=== PATIENT | male | born 1950 | race Caucasian/White ===

== ENCOUNTER 2017-01-27 06:46 | Day surgery (SDC) | payer OTHER ==
[2017-01-25 14:00] VITALS: BP 151/81
[~2017-01-27] VITALS: Ht 177.8 cm; Wt 99.8 kg
[~2017-01-27 06:46] MED LIST: BUPIVACAINE/PF 0.5% ONE; DOXY100T PO; EPINEPHRINE 1 MG/ML, 1ML ONE; IBUP200T64 PO; LIDOCAINE/PF 1%, 30ML ONE; OXYC-307 PO; TIZA4TAB9 PO; cloniDINE/PF 100 MCG/ML, 10 ML ONE; robaxin PO; tizanidine PO
[2017-01-27] MEDS ORDERED: LIDOCAINE 1%, 2ML ONE (07:16)
[2017-01-27] MEDS ORDERED: PROPOFOL 10 MG/ML, 20ML ONE (07:20)
[2017-01-27] MEDS ORDERED: ONDANSETRON 2MG/ML, 2ML ONE (07:20)
[2017-01-27] MEDS ORDERED: DEXAMETHASONE 4 MG/ML, 1ML ONE (07:20)
[2017-01-27] MEDS ORDERED: SUCCINYLCHOLINE 20 MG/ML, 10ML ONE (07:20)
[2017-01-27] MEDS ORDERED: CEFAZOLIN 1,000 MG ONE (07:20)
[2017-01-27] MEDS ORDERED: MIDAZOLAM 1 MG/ML, 2ML ONE (07:20)
[2017-01-27] MEDS ORDERED: LIDOCAINE-MPF 2% ,5ML ONE (07:20)
[2017-01-27] MEDS ORDERED: BUPIVACAINE/PF 0.5% ONE (07:20)
[2017-01-27] MEDS ORDERED: FENTANYL PF 100 MCG/2ML ONE (07:20)
[2017-01-27] MEDS ORDERED: IBUP200T48 PO (07:35)
[2017-01-27] MEDS ORDERED: LACTATED RINGERS 1,000 ML IV SCH ×2 (07:37)
[2017-01-27] MEDS ORDERED: IBUPROFEN 800 MG TABLET PO SCH (09:00)
[2017-01-27] MEDS ORDERED: EPHEDRINE 50 MG/ML, 1ML ONE (09:24)
[2017-01-27] MEDS ORDERED: ROCURONIUM 10 MG/ML,10ML ONE (09:25)
[2017-01-27] MEDS ORDERED: LIDOCAINE GEL 2%, 5ML ONE (09:26)
[2017-01-27] MEDS ORDERED: LABETALOL 5MG/ML, 20ML IV PRN (09:30)
[2017-01-27] MEDS ORDERED: HYDROmorphone 1 MG/ML, 1ML IV PRN (09:30)
[2017-01-27] MEDS ORDERED: DIAZEPAM 5 MG/ML, 2ML IVPush PRN (09:30)
[2017-01-27] MEDS ORDERED: MIDAZOLAM 1 MG/ML, 2ML IV PRN (09:30)
[2017-01-27] MEDS ORDERED: ACETAMINOPHEN 325 MG TABLET PO PRN (09:30)
[2017-01-27] MEDS ORDERED: ALBUTEROL/IPRATROPIUM 2.5MG/0.5MG, 3 ML NPPB PRN (09:30)
[2017-01-27] MEDS ORDERED: MEPERIDINE/PF 25MG/0.5ML IVPush PRN (09:30)
[2017-01-27] MEDS ORDERED: OXYcodone 5 MG/5 ML ORAL.SOL UDC PO PRN (09:30)
[2017-01-27] MEDS ORDERED: hydrALAzine 20 MG/ML, 1ML IV PRN (09:30)
[2017-01-27] MEDS ORDERED: ONDANSETRON 2MG/ML, 2ML IVPush PRN (09:30)
[2017-01-27] MEDS ORDERED: FENTANYL PF 100 MCG/2ML IV PRN (09:30)
[2017-01-27] MEDS ORDERED: PROMETHAZINE 25 MG/ML, 1ML IV PRN (09:30)
[2017-01-27] MEDS ORDERED: BUPIVACAINE/EPI 0.5% 1:200K INFIL ONE (09:34)
[2017-01-27] MEDS ORDERED: LIDOCAINE 1%-EPI 1:100K, 30ML INFIL ONE (09:34)
== END 2017-01-27 12:50 ==
LOC: OUT 06:46
PROVIDERS: ATTEND Orthopaedic Surgery
DX: M75.111 Incomplete rotator cuff tear or rupture of right shoulder, not specified as traumatic (principal); M19.011 Primary osteoarthritis, right shoulder; M75.41 Impingement syndrome of right shoulder; M94.211 Chondromalacia, right shoulder; M24.111 Other articular cartilage disorders, right shoulder; M65.811 Other synovitis and tenosynovitis, right shoulder
CPT/HCPCS: 29822; 29826; 29827; C1713; J0171; J0330; J0690; J0735; J1100; J2250; J2405; J2704; J3010; J3490

== ENCOUNTER 2019-11-07 14:07 | Outpatient (CLI) | payer MEDICARE ==
[~2019-11-07 14:07] MED LIST changes: -BUPIVACAINE/PF 0.5% ONE; -EPINEPHRINE 1 MG/ML, 1ML ONE; +HYDR-3246 PO; +IBUP200T49 PO; -LIDOCAINE/PF 1%, 30ML ONE; +METH750T87 PO; +None per pt; -cloniDINE/PF 100 MCG/ML, 10 ML ONE
== END 2019-11-07 23:59 | disposition home or self-care (01) ==
LOC: CARD 14:07
PROVIDERS: ATTEND Psychiatry & Neurology Neurology
DX: G12.21 Amyotrophic lateral sclerosis (principal)
CPT/HCPCS: 94010